=== PATIENT | male | born 1970 | race Caucasian/White ===

== ENCOUNTER 2021-04-28 10:27 | Emergency (ER) | payer BC ==
[~2021-04-28] VITALS: Ht 177.8 cm; Wt 68.0 kg
[2021-04-28 10:54] LABS: HEMATOCRIT 44.3 % (42.0-52.0); HEMOGLOBIN 15.1 gm/dL (14.0-18.0); MCH 31.1 pg (26.0-34.0); MCHC 34.1 g/dL (28.0-37.0); MCV 91.3 fL (80.0-100.0); PLATELET COUNT 302 thou/uL (150-400); RBC 4.85 mil/uL (4.50-6.00); RDW 12.9 % (10.5-14.5); WBC 21.4 thou/uL (4.0-11.0)
[2021-04-28 11:00] LABS: CALCIUM 9.6 mg/dL (8.5-10.1); CREATININE 0.9 mg/dL (0.7-1.3); POTASSIUM 4.1 mmol/L (3.5-5.1)
[2021-04-28 11:30] LABS: ABSOLUTE NEUTROPHILS 19.3 thou/uL (1.4-8.2)
[2021-04-28 11:36] LABS: ANISOCYTOSIS SLIGHT
[2021-04-28 12:19] LABS: URINE BILIRUBIN NEGATIVE (Negative); URINE BLOOD 2+ (Negative); URINE COLOR YELLOW; URINE GLUCOSE-RANDOM* NEGATIVE (Negative); URINE KETONES NEGATIVE (Negative); URINE NITRITE-REFLEX NEGATIVE (Negative); URINE PROTEIN (DIPSTICK) 1+ (Negative); URINE SPECIFIC GRAVITY >= 1.030 (1.005-1.035); URINE UROBILINOGEN 0.2 E.U./dl (0.2-1.0)
[2021-04-28 12:20] LABS: URINE CLARITY SL HAZY; URINE LEUKOCYTES-REFLEX 2+ (Negative)
[2021-04-28 12:33] LABS: CASTS None Seen /LPF (None Seen); MUCUS >6 Heavy strn/LPF (None Seen); SQUAMOUS 0-3 Few /LPF (0-3)
[2021-04-28 12:35] LABS: BACTERIA-REFLEX 1-9 Few /HPF (None Seen); CRYSTALS None Seen /LPF (None Seen); URINE RBC 3-10 Few /HPF (NONE SEEN); URINE WBC-REFLEX >25 Many /HPF (0-5)
[2021-04-28] MEDS ORDERED: LEVOFLOXACIN500 MG PO (12:54)
[2021-04-28 13:13] VITALS: BP 135/85
== END 2021-04-28 13:13 | disposition home or self-care (01) ==
LOC: ER 10:27
PROVIDERS: Student in an Organized Health Care Education/Training Program
DX: N45.1 Epididymitis (principal)